=== PATIENT | male | born 1990 | race Caucasian/White ===

== ENCOUNTER → 2018-11-14 | Outpatient (CLI) | payer BC ==
[~2018-11-14] MED LIST: ACET650S3 PO; MOTR200T44 PO
[2018-11-14 10:05] LABS: FREE T3 3.6 PG/ML (2.2-4.0); FREE T4 0.81 NG/DL (0.76-1.46); THYROXINE (T4) 6.7 UG/DL (4.5-12.0)
[2018-11-14 10:25] LABS: THYROID PEROXIDASE ANTIBODY > 1300.0 U/ML (<60.0)
== END ==
LOC: M WUC 08:08
PROVIDERS: ATTEND Nurse Practitioner Adult Health
DX: R94.6 Abnormal results of thyroid function studies (principal)

== ENCOUNTER → 2021-10-27 | Outpatient (REF) | payer OTHER, BC | LOC: M SMT 13:04 | PROVIDERS: ATTEND Urology | DX: Z30.2 Encounter for sterilization (principal) ==